=== PATIENT | male | born 1955 | race Caucasian/White ===

== ENCOUNTER 2017-02-09 10:50 | Outpatient (CLI) | payer MEDICARE ==
[~2017-02-09] VITALS: Ht 177.8 cm; Wt 119.1 kg
--- NOTE | ~2017-02-09 | HEMODYNAMI ---
PATIENT:GARRETT FUCHS MEDICAL RECORD: [id number] : 57 LOCATION:JOHN ADMISSION DATE: 02/09/17 Generatedon:02/09/201713:59 Patient name: GARRETT FUCHS Patient #: [id number] SSN: : 1955 Date of study: 02/09/2017 Page: Of Hemodynamic Procedure Report Patient Data Patient Demographics Procedure consent was obtained First Name: GARRETT Gender: Male Last Name: SHILA : 1955 [facility] Initial: HEENA Age: 61 year(s) Patient #: [id number] Race: Unknown Additional ID: [id number] Contact details Address: [place] [address] State: [place] City: [place] Zip code: [address] Past Medical History Allergies: No known allergies Admission Admission Data Admission Date: 02/09/2017 Admission Time: 10:50 Admit Source: Other Lab Results Lab Result Date: 02/09/2017 Lab Result Time: 11:15 Biochemistry Name Units Result Min Max BUN mg/dl 20 --(----)*- 7 18 Creatinine mg/dl 1.3 --(---*)-- 0.6 1.3 CBC Name Units Result Min Max Hematocrit % 46.8 --(-*--)-- 42 54 Hemoglobin g/dl 16.7 --(---*)-- 13.5 17.5 Procedure Procedure Types Cath Procedure Diagnostic Procedure LHC LHC w/Coronaries Miscellaneous Procedures Moderate Sedation up to 15 minutes Procedure Description Procedure Date Procedure Date: 02/09/2017 Procedure Start Time: 13:47 Procedure End Time: 13:59 Procedure Staff Name Function Farrukh Farooq MD Performing Physician David Ruby RT Scrub Shelia De Leon RN Nurse Sharon Encinas RT Monitor Darrel Hayward RN Coarse Wire Drawer Procedure Data Cath Procedure Fluoroscopy Diagnostic fluoroscopy Total fluoroscopy Time: 2.2 time: 2.2 min min Diagnostic fluoroscopy Total fluoroscopy dose: 579 dose: 579 mGy mGy Contrast Material Contrast Material Type Amount (ml) Isovue 300 57 Entry Location Entry Primary Successful Side Size Upsize Upsize Entry Closure Moreno ccessful Closure Location (Fr) 1 (Fr) 2 (Fr) Remarks Device Remarks Radial Right 6 Fr Mechanical artery Short Compression Estimated blood loss: 5 ml Diagnostic catheters Device Type Used For End Catheter Placement Diagnostic Terumo 5Fr LV Angiography [place] 110cm catheter Diagnostic Terumo 5Fr Left Coronary [place] 110cm catheter Angiography Diagnostic Terumo 5Fr Right Coronary [place] 110cm catheter Angiography Procedure Complications No complications Procedure Medications Medication Administration Route Dosage Oxygen NC 2 l/min Lidocaine 2% added to field 20 Heparin Flush Bag added to field 2 bags (1000units/500ml NS) 0.9% NaCl I.V. 100 ml/hr Radial Cocktail added to field 1 syringe (Verapomil 2mg/Nitro 400mcg/Heparin 1500units) Versed I.V. 2 mg Fentanyl I.V. 100 mcg Versed I.V. 2 mg Fentanyl I.V. 100 mcg Radial Cocktail added to field 1 syringe (Verapomil 2mg/Nitro 400mcg/Heparin 1500units) Versed I.V. 0.5 mg Fentanyl I.V. 25 mcg Hemodynamics Rest HGB: 16.7 (g/dl) Heart Rate: 47 (bpm) Pressure Samples Time Site Value (mmHg) Purpose Heart Use Rate(bpm) 13:51 LV 152/28,6 EDP 50 13:51 LV 134/38,55 Snapshot 30 13:52 AO 123/76(99) Pullback 53 13:52 LV 108/-6,7 Pullback 53 Gradients Valve Time Site 1 Site 2 Mean SEP/DFP Peak To Heart Use (mmHg) (sec/min) Peak Rate (mmHg) (bpm) Aortic 13:52 LV AO 0 2 0 53 108/-6,7 123/76(99) Calculations Valve P-P Mean Valve Index Valve Source Name Gradient Area Flow (cm2) Aortic 0 0 0 0 Snapshots Pre Cath Intra NCS Post Cath Vital Signs Time Heart Resp SPO2 etCO2 [id number] NIBP (mmHg) Rhythm Pain Sedatio n Rate (ipm) (%) (mmHg) (mmHg) Status Level (bpm) 12:59:10 45 17 99 0 0 168/100(122) SB 0 (11) 10(A) , No pain 13:03:30 44 16 100 0 0 182/95(130) SB 0 (11) 10(A) , No pain 13:07:54 46 16 100 0 0 162/94(117) SB 0 (11) 10(A) , No pain 13:12:14 46 19 100 0 0 161/87(108) SB 0 (11) 10(A) , No pain 13:16:34 45 19 100 0 0 145/84(104) SB 0 (11) 10(A) , No pain 13:20:50 42 16 97 0 0 133/81(98) SB 0 (11) 10(A) , No pain 13:25:02 44 16 95 0 0 137/77(104) SB 0 (11) 10(A) , No pain 13:29:14 43 17 96 0 0 137/81(108) SB 0 (11) 10(A) , No pain 13:33:30 45 17 97 0 0 129/71(102) NSR 0 (11) 10(A) , No pain 13:37:36 47 16 95 0 0 137/93(110) NSR 0 (11) 10(A) , No pain 13:42:35 43 16 100 0 0 Measuring NSR 0 (11) 10(A) , No pain 13:42:55 42 17 98 0 0 136/80(101) NSR 0 (11) 10(A) , No pain 13:47:03 44 14 97 0 0 138/91(103) NSR 0 (11) 9(A) , No pain 13:51:15 48 15 98 0 0 135/81(123) NSR 0 (11) 9(A) , No pain 13:55:25 49 17 96 0 0 133/84(111) NSR 0 (11) 10(A) , No pain Medications Time Medication Route Dose Verified Delivered Reason Notes Effectiveness by by 13:06:47 Oxygen NC 2 l/min Farrukh Bass used for [place]aley pickle sorter 13:06:53 Lidocaine 2% added 20ml Farrukh Chadwick for local to vial [facility] anesthetic field MD ECHAVARRIA 13:06:59 Heparin Flush added 2 bags Farrukh Chadwick used for Bag to [facility] procedure (1000units/500ml field MD ECHAVARRIA NS) 13:07:09 0.9% NaCl I.V. 100 Farrukh Buffie Per ml/hr [facility]. Isak doyle MD 13:32:20 Radial Cocktail added 1 Farrukh Chaconie (Verapomil to syringe St. Isak De Leon RN 2mg/Nitro field ECHAVARRIA 400mcg/Heparin 1500units) 13:40:21 Versed I.V. 2 mg Farrukh Buffie for sedation [facility]. Isak De Leon RN, MD 13:40:28 Fentanyl I.V. 100 mcg Farrukh Buffie for sedation [facility]. Isak De Leon RN, MD 13:45:41 Versed I.V. 2 mg Farrukh Buffie for sedation [facility]. Isak De Leon RN, MD 13:45:45 Fentanyl I.V. 100 mcg Farrukh Buffie for sedation [facility]. Isak De Leon RN, MD 13:49:25 Radial Cocktail added 1 Farrukh Farrukh for (Verapomil to syringe [place] Solomon. John vasodilation 2mg/Nitro field MD ECHAVARRIA 400mcg/Heparin 1500units) 13:54:04 Versed I.V. 0.5 mg Farrukh Buffie for sedation [facility]. Isak De Leon RN, MD 13:54:09 Fentanyl I.V. 25 mcg Farrukh Buffie for sedation St. Isak De Leon RN, MD Procedure Log Time Note 12:37:57 Informed consent obtained and on chart 12:38:17 Admit Source: Other 12:38:20 Diagnostic Cath status Elective 12:38:36 Darrel Hayward RN sent for patient. Start room use. 12:39:14 Time tracking: Regular hours 12:39:17 Plan of Care:Hemodynamics will remain stable., Cardiac rhythm will remain stable., Comfort level will be maintained., Respiratory function will remain adequate., Patient/ family verbilizes understanding of procedure., Procedure tolerated without complication., Recovers from procedure without complications.. 12:41:10 Lab Result : Hemoglobin 16.7 g/dl 12:41:10 Lab Result : Creatinine 1.3 mg/dl 12:41:10 Lab Result : BUN 20 mg/dl 12:41:10 Lab Result : Hematocrit 46.8 % 12:50:40 Patient received from Pre/Post Procedure Room to [facility] 1 Alert and oriented. Tansferred to table in Supine position. 12:50:41 Warm blankets applied, and jimena hugger turned on for patient comfort. 12:50:42 Correct patient and procedure confirmed by team. 12:50:42 ECG and BP/O2 sat monitors applied to patient. 12:57:58 Vital chart was started 12:57:59 Full Disclosure recording started 12:58:05 Rhythm: sinus bradycardia 13:01:58 H&P Date Dictated: 01/06/2017 Within 30 days and on chart., New H&P dictated by physician.. 13:01:59 Pre-procedure instructions explained to patient. 13:01:59 Pre-op teaching completed and patient verbalized understanding. 13:02:01 Family in waiting room. 13:02:02 Patient NPO since Midnight. 13:02:08 Patient allergic to No known allergies 13:02:25 Is patient on blood thinner?No 13:02:27 Patient diabetic? No. 13:02:30 Previous problem with sedation/anesthesia? No ? 13:02:31 Snore? Yes 13:02:33 Sleep apnea? No 13:02:34 Deviated septum? No 13:02:35 Opens mouth fully? Yes 13:02:35 Sticks out tongue? Yes 13:02:37 Airway obstruction? No ? 13:02:44 Dentures? No Lost Teeth 13:03:00 Pre procedure: right dorsailis pedis pulse 2+ Normal; easily identifiable; not easily obliterated 13:03:03 Modified Toribio's test Ulnar < 7 seconds 13:03:06 Patient pain scale 0/10 ?. 13:03:12 IV patent on arrival in left hand with 0.9% NaCl at O. 13:03:16 Lab results completed and on chart. 13:03:23 Right Radial & Right Groin area was prepped with chlora-prep and draped in sterile fashion 13:03:24 Alarms reviewed by R. N. 13:03:24 Sharps counted by scrub and verified by R.N. 13:03:30 Use device set Radial Dx 13:03:32 Acist Syringe opened to sterile field. 13:03:32 Medline Cath Pack opened to sterile field. 13:03:33 Bag Decanter opened to sterile field. 13:03:33 Terumo 6Fr Slender Glidesheath opened to sterile field. 13:03:34 St Al 260cm J .035 wire opened to sterile field. 13:03:34 Acist Hand Control opened to sterile field. 13:03:34 Acist Manifold opened to sterile field. 13:03:35 Tegaderm 4 x 4 opened to sterile field. 13:04:29 Baseline sample Acquired. 13:06:47 Oxygen 2 l/min NC was administered by Shelia De Leon RN; used for procedure; 13:06:53 Lidocaine 2% 20ml vial added to field was administered by Farrukh Farooq MD; for local anesthetic; 13:06:59 Heparin Flush Bag (1000units/500ml NS) 2 bags added to field was administered by Farrukh Farooq MD; used for procedure; 13:07:09 0.9% NaCl 100 ml/hr I.V. was administered by Shelia De Leon RN; Per physician; 13:21:59 Zero performed for pressure channel P1 13:32:20 Radial Cocktail (Verapomil 2mg/Nitro 400mcg/Heparin 1500units) 1 syringe added to field was administered by Shelia De Leon RN; ; 13:38:17 Final Timeout: patient, procedure, and site verified with staff and physician. All members of the team are in agreement. 13:38:21 Right Radial site verified by team. 13:38:23 Physical assessment completed. ASA score P 2 - A patient with mild systemic disease as per Farrukh Farooq MD. 13:38:27 Sedation plan: IV Moderate Sedation Versed, Fentanyl 13:40:21 Versed 2 mg I.V. was administered by Shelia De Leon RN; for sedation; 13:40:28 Fentanyl 100 mcg I.V. was administered by Shelia De Leon RN; for sedation; 13:45:41 Versed 2 mg I.V. was administered by Shelia De Leon RN; for sedation; 13:45:45 Fentanyl 100 mcg I.V. was administered by Shelia De Leon RN; for sedation; 13:47:15 Procedure started. 13:47:21 Local anesthetic to right radial artery with Lidocaine 2% by Farrukh Farooq MD.INITIAL ACCESS ONLY 13:48:29 A 6 Fr Short sheath was inserted into the Right Radial artery 13:49:09 A Diagnostic Terumo 5Fr [place] 110cm catheter was advanced over the wire and used for LV Angiography. 13:49:25 Radial Cocktail (Verapomil 2mg/Nitro 400mcg/Heparin 1500units) 1 syringe added to field was administered by Farrukh Farooq MD; for vasodilation; 13:51:23 LV gram done using CARRENO 13:51:24 LV hemodynamics recorded. 13:51:27 Injector settings: Ml/sec: 5, Volume: 15, 13:52:02 EF : 50 % 13:52:53 A Diagnostic Terumo 5Fr [place] 110cm catheter was advanced over the wire and used for Left Coronary Angiography. 13:54:04 Versed 0.5 mg I.V. was administered by Shelia De Leon RN; for sedation; 13:54:09 Fentanyl 25 mcg I.V. was administered by Shelia De Leon RN; for sedation; 13:54:39 A Diagnostic Terumo 5Fr [place] 110cm catheter was advanced over the wire and used for Right Coronary Angiography. 13:54:45 Catheter removed. 13:54:58 Sheath removed intact; hemostasis achieved with Mechanical Compression to the Right Radial artery. 13:55:45 Procedure ended.(Physican Out) 13:55:54 Fluoroscopy time 02.20 minutes. 13:55:59 Fluoroscopy dose: 579 mGy 13:55:59 Flurop Dose total: 579 13:56:04 Contrast amount:Isovue 300 57ml. 13:56:06 Sharps counted by scrub and verified by R.N. 13:56:15 TR band inflated with 11cc of air. 13:56:17 Insertion/operative site no bleeding no hematoma. 13:56:24 Post right radial artery:stable, clean and dry 13:56:26 Post Procedure Pulses reassessed and unchanged 13:56:33 Post-procedure physical assessment completed. ASA score P 2 - A patient with mild systemic disease as per Farrukh Farooq MD. 13:56:37 Post procedure rhythm: unchanged. 13:56:39 Estimated blood loss: 5 ml 13:56:41 Post procedure instruction explained to patient.Patient verbalizes understanding. 13:56:41 Patient needs reinforcement of post procedure teaching. 13:56:49 Procedure type changed to Cath procedure, Diagnostic procedure, LHC, LHC w/Coronaries, Miscellaneous Procedures, Moderate Sedation up to 15 minutes 13:57:24 Procedure Complication : No complications 13:57:39 Terumo TR Band Large opened to sterile field. 13:58:17 See physician's report for complete and final results. 13:58:19 Procedure and supply charges have been captured, reviewed, submitted and are correct. 13:59:04 Vital chart was stopped 13:59:06 Report given to Pre/Post Procedure Room. 13:59:10 Patient transfered to Pre/Post Procedure Room with Stretcher. 13:59:18 Procedure ended. 13:59:18 Full Disclosure recording stopped 13:59:22 End room use (Document Last) Device Usage Item Name Manufacture Quantity Catalog Hospital Part Current Minimal Lot# / Number Charge Number Stock Stock Serial# Code Acist Acist 1 93947 [id number] [id number] 20 Syringe [employer] Medline Cardinal 1 [id number] 46903 [id number] 5 Cath Pack Health Bag Microtek 1 2002S 765820 56759 115384 5 Decan[employer] Terumo 6Fr Terumo 1 [id number] 533572 683446 189286 [address] Al St Al 1 193096 563201 624700 469772 30 260cm J .035 wire Acist Hand Acist 1 95568 918749 045325 849125 5 Control [employer] Inc Acist Acist 1 29893 148358 528420 154989 5 Manifold [employer] Tegaderm 4 3M 1 [id number] 473206 605827 531465 5 x 4 Diagnostic Terumo 1 40-5483 471946 671493 988810 5 Terumo 5Fr [place] 110cm catheter Terumo TR Terumo 1 [id number] 448136 264708 873445 40 Band Large Signature Audit [place]wood Stage Time Signature Unsigned Intra-Procedure 02/09/2017 Sharon 1:59:33 PM Counts RT(R) Signatures Monitor : Sharon Signature : Counts RT Date : Time : [facility] [address] [place] [address]
[2017-02-09] MEDS ORDERED: ZYLOPRIM300 MG PO (11:08)
[2017-02-09] MEDS ORDERED: IBUPROFEN800 MG PO (11:08)
[2017-02-09] MEDS ORDERED: NORVASC10 MG PO (11:09)
[2017-02-09] MEDS ORDERED: MOBIC7.5 MG PO (11:10)
[2017-02-09] MEDS ORDERED: OMEPRAZOLE20 M1 PO (11:10)
[2017-02-09] MEDS ORDERED: PROZAC20 MG PO (11:11)
[2017-02-09] MEDS ORDERED: FENOFIBRATE160 MG PO (11:11)
[2017-02-09 11:19] VITALS: BP 166/88; Ht 177.8 cm; Wt 119.1 kg
[2017-02-09 11:27] LABS: BASOPHILS 0.3 % (0-2); EOSINOPHILS 1.1 % (0-7); HEMATOCRIT 46.8 % (42.0-54.0); HEMOGLOBIN 16.7 g/dL (13.5-17.5); IMMATURE GRANULOCYTES 0.5 % (0-5); LYMPHOCYTES 36.6 % (15-50); MCH 31.3 pg (26.0-34.0); MCHC 35.7 g/dL (31.0-37.0); MCV 87.8 fL (80.0-100.0); MEAN PLATELET VOLUME 12.6 fL (7.4-10.4); MONOCYTES 7.8 % (2-11); NEUTROPHILS 53.7 % (40-80); PLATELET COUNT 276 10x3/uL (130-400); RBC 5.33 10x6/uL (4.20-6.10); RDW 13.9 % (11.5-14.5); WBC 7.4 10x3/uL (4.8-10.8)
[2017-02-09 11:32] LABS: CALC OSMOLALITY 270 mosm/kg (275-300); CHLORIDE - SERUM 101 mmol/L (98-107); CREATININE - SERUM 1.3 mg/dL (0.6-1.3); GLUCOSE 96 mg/dL (74-106); SODIUM 134 mmol/L (136-145); UREA NITROGEN 20 mg/dL (7-18); eGFR NON AFRICAN AMERICAN 60 mL/min (90-120)
--- NOTE | 2017-02-09 14:30 | NUR ---
SANDWICH AND COLA GIVEN, TR BAND INTACT, NO BLEEDING AT SITE, IV PATENT.
--- NOTE | 2017-02-09 15:02 | NUR ---
WATCHING TV, FAMILY AT SIDE, DENIES NEEDS, TR BAND TO RIGHT WRIST CDI, NO BLEEDING AT SITE
--- NOTE | 2017-02-09 16:10 | NUR ---
IV D'C WITH CATH TIP INTACT, WRITTEN AND VERBAL D'C INSTRUCTIONS GIVEN AND VERBAL UNDERSTANDING NOTED. D'C HOME WITH AND DAUGHTER
--- NOTE | 2017-02-11 11:07 | OP ---
PATIENT NAME: GARRETT FUCHS MEDICAL RECORD: [id number] :57 LOCATION:D.CAT ADMISSION DATE: SURGEON: MIKAYLA GOMEZ MD DATE OF OPERATION: 02/09/2017 PROCEDURE: Left heart catheterization, selective coronary angiography, right radial approach. CATHETERS: A 5-Cam[place] sheath, [place] catheter. The procedure was well tolerated. The patient returned to the vargas, sheath removed. TR band was placed. FINDINGS: Left ventriculography in the 30-degree CARRENO view: Normal wall motion, normal systolic function. CORONARY ANATOMY: LEFT MAIN: Left main is free of disease. LAD: Free of disease in the diagonal system. CIRCUMFLEX: Free of disease in the marginal system. RIGHT CORONARY ARTERY: Dominant artery, gives rise to PDA, free of disease. IMPRESSION: Normal systolic function. Normal coronary anatomy. TRANSINT:[id number] Voice Confirmation ID: [id number] DOCUMENT ID: [id number] MIKAYLA GOMEZ MD at 1107 CC: [id number] DICTATION DATE: 02/09/17 1400 PIPE FITTER HELPER: 02/09/17 1945 DEP CLI 02/09/17 [facility] [address] [place] [address]
--- NOTE | 2017-02-11 11:07 | HP ---
PATIENT: GARRETT FUCHS MEDICAL RECORD: [id number] ACCOUNT: [id number] LOCATION:JOHN : 57 ADMISSION DATE: 02/09/17 HISTORY AND PHYSICAL EXAMINATION History and Physical Update DIAGNOSES: 1. Abnormal electrocardiogram. 2. Abnormal stress testing. 3. Angina. 4. Hypertension. 5. Hyperlipidemia. Seen in the office. Found to have abnormal stress testing. He is being [facility] to [facility] angiography. TRANSINT:[id number] Voice Confirmation ID: [id number] DOCUMENT ID: [id number] MIKAYLA GOMEZ MD at 1107 CC: [id number] DICTATION DATE: 02/09/17 1359 NEUROLOGY TECH: 02/09/17 1538 [facility] CLI 02/09/[address] [id number]
== END 2017-02-09 16:15 | disposition home or self-care (01) ==
LOC: D.CATH 10:50
PROVIDERS: Internal Medicine Interventional Cardiology
DX: I20.9 Angina pectoris, unspecified (principal); R94.30 Abnormal result of cardiovascular function study, unspecified; R06.02 Shortness of breath; I10 Essential (primary) hypertension; E78.5 Hyperlipidemia, unspecified; Z01.812 Encounter for preprocedural laboratory examination